=== PATIENT | female | born 1975 | race Two or more races ===

== ENCOUNTER 2017-10-04 05:59 | Day surgery (SDC) | payer BC ==
--- NOTE | 2017-10-03 17:44 | Pre-Procedure Note/Attestation ---
Pre-Procedure Note/Attestation Complete Prior to Procedure Planned Procedure: bilateral Procedure Narrative: 1. Open Reduction Internal FixationNasal Fracture 2. Septoplasty 3. Submucous Resection right inferior turbinate 4. Submucouse resection left inferior turbinate Indications for Procedure Pre-Operative Diagnosis: 1. Nasal fracture 2. Nasal septal deviation 3. Hypertrophied right inferior turbinate 4. Hypertrophied left inferior turbinate Attestation I attest that I discussed the nature of the procedure; its benefits; risks and complications; and alternatives (and the risks and benefits of such alternatives ), prior to the procedure, with the patient (or the patient's legal sales development representative). I attest that, if there was a reasonable possibility of needing a blood transfusion, the patient (or the patient's legal sales development representative) was given the [place] Department [employer] standardized written summary, pursuant to the Venkata Jannet Blood Safety Act ([place] Health and Safety Code # 1645, as amended). I attest that I re-evaluated the patient just prior to the surgery and that there has been no change in the patient's H&P, LEROY COTTRELL Oct 03, 2017 17:44
--- NOTE | 2017-10-03 18:45 | Pre-op HX & Phy Repo 2 SIG ---
DATE OF ADMISSION: 10/04/2017 DATE OF SURGERY: 10/04/2017. INDICATION FOR SURGERY: The patient is a 42-year-old female, who broke her nose who is now coming to have it fixed. She has a bump on her anterior nose as well as fracture of her nasal septum and hypertrophied right and left inferior turbinates on exams in my office. ALLERGIES: She is allergic to sulfa drug. SOCIAL HISTORY: Never a smoker. Single. No children. No issues with alcohol or drugs. 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 FAMILY AND MEDICAL HISTORY: Significant for cancer of the brain and prostate, and diabetes in the family members. She does exercise. Takes supplements and vitamins on a regular basis. She eats a regular diet. SURGICAL HISTORY: No surgical history. PHYSICAL EXAMINATION: GENERAL: She is 62 inches, 114 pounds, and BMI 20.85. Blood pressure 120/80, temperature 98.6, pulse 72, respiratory rate 14, as the last time I saw her on 09/26/2017. HEENT: Nose, septal deviation. Bump on her nose consistent with injury, hypertrophied right and left inferior turbinates. Mouth, normal. Ears, positive light reflex. Normal canal. NECK: Normal. ABDOMEN: Soft and nontender. Normoactive bowel sounds. CHEST: Clear to auscultation and percussion. EXTREMITIES: Grossly normal. 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 It is not indicated for this type surgery. 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 It is not indicated for this type surgery. ASSESSMENT: She is a candidate for open reduction internal fixation of nasal fracture, septoplasty, submucous resection of right and left inferior turbinates. She does not need laboratories. She is otherwise stable and healthy under 46 years old. Stuart Merino M.D. DR: MEETA JOB#: [id number] CC:
[~2017-10-04] VITALS: Ht 154.9 cm; Wt 50.8 kg
[2017-10-04] VITALS (11 sets, daily range): BP systolic 98–125; BP diastolic 67–77
[2017-10-04] MEDS ORDERED: ZYRTEC10 MG ORAL (06:55)
[2017-10-04] MEDS ORDERED: Bupivacaine 0.5% Inj 30 ml vial INJ ONE (07:01)
[2017-10-04] MEDS ORDERED: Cocaine HCl 4% 4ml vial TOPIC ONE (07:01)
[2017-10-04] MEDS ORDERED: Bacitracin Oint 15gm Tube TOPIC ONE (07:01)
[2017-10-04] MEDS ORDERED: Lidocaine 1% 10mg/ml/EPI 0.01mg/ml 50ml INJ ONE (07:02)
[2017-10-04] MEDS ORDERED: LR 1000ml 1,000 ML IVLG SCH (07:08)
--- NOTE | 2017-10-04 07:08 | Anethesia Preoperative Eval ---
Anesthesia Pre-op PMH/ROS General Date of Evaluation: Oct 04, 2017 Anesthesiologist: Wiliam ASA Score: ASA 2 Mallampati Score Class I : Soft palate, uvula, fauces, pillars visible Class II: Soft palate, uvula, fauces visible Class III: Soft palate, base of uvula visible Class IV: Only hard plate visible Mallampati Classification: Class II Surgeon: Wilber Diagnosis: Nasal fracture Surgical Procedure: Septoplasty, SMR/TURBS Anesthesia History: none Family History: no anesthesia problems Allergies: Coded Allergies: SULFA (SULFONAMIDE ANTIBIOTICS) (Verified Allergy, Unknown, hives, 10/03/17 ) childhood Medications: see eMAR Past Medical History Cardiovascular: Reports: other - HLD, Denies: HTN, CAD, [place], valve dz, arrhythmia Pulmonary: Denies: asthma, COPD, SAMMY, other Gastrointestinal/Genitourinary: Denies: GERD, CRI, ESRD, other Neurologic/Psychiatric: Denies: dementia, CVA, depression/anxiety, TIA, other Endocrine: Denies: DM, hypothyroidism, steroids, other HEENT: Denies: cataract (L), cataract (R), glaucoma, CHILKAT (L), CHILKAT (R), other Hematology/Immune: Reports: other - as per patient, history of internal angioedema, resolves with zyrtec, unknown etiology, Denies: anemia, DVT, bleeding disorder Musculoskeletal/Integumentary: Denies: OA, RA, DJD, DDD, edema, other PSxH Narrative: Denies Anesthesia Pre-op Phys. Exam Physician Exam see chart Constitutional: NAD Cardiovascular: RRR Respiratory: CTA Airway Exam Mallampati Score: Class II MO: full ROM: full Teeth: intact Anesthesia Pre-op A/P Labs see chart Urine Test Test 10/04/17 06:28 Urine HCG, Qualitative Negative Studies Pre-op Studies: EKG - sr Risk Assessment & Plan Assessment: ASA II Plan: GA Status Change Before Surgery: No Pre-Antibiotics Drug: Ancef 1g Given Within 1 Hr of Incision: BART León M.D. Oct 04, 2017 07:08
[2017-10-04] MEDS ORDERED: ceFAZolin sod 1 GM in D5W 55 ML IV ONE (07:15)
[2017-10-04] MEDS ORDERED: fentaNYL 100 mcg/2 mL IV PRN (07:15)
[2017-10-04] MEDS ORDERED: LORazepam Inj 2mg/ml 1ml IV PRN (07:15)
[2017-10-04] MEDS ORDERED: Hydromorphone 0.5mg/0.5ml inj IVP PRN (07:15)
[2017-10-04] MEDS ORDERED: DiphenhydrAMINE 50mg/ml Inj IVP PRN (07:15)
[2017-10-04] MEDS ORDERED: Midazolam 2mg/2ml Inj IVP PRN (07:15)
[2017-10-04] MEDS ORDERED: Dexamethasone 4mg/ml vial IVP ONE (07:30)
[2017-10-04] MEDS ORDERED: Sterile Water Irrig 1000ml IRRIG ONE (07:45)
[2017-10-04] MEDS ORDERED: NS Irrig 1000ml ONE (07:45)
[2017-10-04] MEDS ORDERED: Dexamethasone 4mg/ml vial ONE (07:45)
[2017-10-04] MEDS ORDERED: fentaNYL 100 mcg/2 mL IV ONE (07:45)
[2017-10-04] MEDS ORDERED: Midazolam 2mg/2ml Inj ONE (07:45)
[2017-10-04] MEDS ORDERED: Propofol 1,000mg/ 100ml btl IV ONE (07:45)
[2017-10-04] MEDS ORDERED: LR 1000ml ONE (07:45)
[2017-10-04] MEDS ORDERED: Metoclopramide 10mg/2ml Inj ONE (07:45)
[2017-10-04] MEDS ORDERED: Lidocaine 1% MPF 10mg/ml 5ml ONE (07:45)
--- NOTE | 2017-10-04 08:17 | Immediate Post-Op Evaluation ---
Immediate Post-Op Evalulation Immediate Post-Op Evalulation Procedure: Septoplasty SMR/TURBS Date of Evaluation: Oct 04, 2017 Time of Evaluation: 08:54 IV Fluids: 800 Blood Products: 0 Estimated Blood Loss: 50 Urinary Output: 0 Blood Pressure Systolic: 122 Blood Pressure Diastolic: 73 Pulse Rate: 93 Respiratory Rate: 18 O2 Sat by Pulse Oximetry: 100 Temperature (Fahrenheit): 97.6 Pain Score (1-10): 0 Nausea: No Vomiting: No Complications 0 Patient Status: awake, reacts, patent, none Hydration Status: adequate Drug: Ancef 1g Given Within 1 Hr of Incision: Yes Time Given: 08:00 BART WARD M.D. Oct 04, 2017 08:17
--- NOTE | 2017-10-04 08:18 | 48 Hour Post Anesthesia Eval ---
Post Anesthesia Evaluation Procedure: Septoplasty SMR/TURBS Date of Evaluation: Oct 04, 2017 Time of Evaluation: 09:50 Blood Pressure Systolic: 118 0: 77 Pulse Rate: 88 Respiratory Rate: 19 Temperature (Fahrenheit): 97.4 O2 Sat by Pulse Oximetry: 98 Airway: patent Nausea: No Vomiting: No Pain Intensity: 0 Hydration Status: adequate Cardiopulmonary Status: at baseline Mental Status/LOC: patient returned to baseline Post-Anesthesia Complications: 0 Follow-up care needed: ready to discharge BART WARD M.D. Oct 04, 2017 08:18
--- NOTE | 2017-10-04 09:15 | Brief Operative Note ---
Immediate Post Operative Note Operative Note Pre-op Diagnosis: 1. Nasal fracture 2. Nasal septal deviation 3. Hypertrophied right inferior turbinate 4. Hypertrophied left inferior turbinate Procedure: ORIF nasal fracture Septoplasty SMR bilateral inferior turbinates Post-op Diagnosis: same as pre-op Surgeon: Leroy Cottrell Assistant Football Coach: none Additional Surgeons: none Anesthesiologist: Dr. Swain Anesthesia: general Specimen: none Complications: none Condition: stable Fluids: 500 [id number] Estimated Blood Loss: volume - 50 cc Drains: none Packing: Stamberger nasal gel-1 syringe Implant(s) used?: No LEROY COTTRELL Oct 04, 2017 09:15
--- NOTE | 2017-10-04 09:18 | Discharge Instructions ---
Discharge Instructions Discharge Instructions Follow up with: next week-pt has appt already Diet: regular Resume Normal Activity?: No Activity: light activity Pneumonia Vaccine: pt refused vaccine Influenza Vaccine (Jun to Nov): pt refused vaccine Follow Up Orders pt has printed instructions, along with post op prescriptions given to her at her pre op appt last week Return to Work/School on: Oct 18, 2017 Special Instructions pt has printed instructions, along with post op prescriptions given to her at her pre op appt last week For Congestive Heart Failure Reminder Report to your physician any weight gain of 5 pounds or more in one week. LEROY COTTRELL Oct 04, 2017 09:18
[2017-10-04] MEDS ORDERED: Norco 5mg/325mg tab ORAL PRN (15:01)
[2017-10-04] MEDS ORDERED: HYDROmorphone 1mg/ml Carpuject SUBQ PRN (15:01)
--- NOTE | 2017-10-04 15:30 | Operative Note - Dictated ---
DATE OF OPERATION: 10/04/2017 SURGEON: Stuart Merino M.D. INDICATION FOR SURGERY: The patient has had fractures to her nose with a bump on either side and a flattening of the mid nose and nasal bone. She also has hypertrophied inferior turbinates bilaterally and a nasal septal deviation. PREOPERATIVE DIAGNOSIS: The patient has had fractures to her nose with a bump on either side and a flattening of the mid nose and nasal bone. She also has hypertrophied inferior turbinates bilaterally and a nasal septal deviation. POSTOPERATIVE DIAGNOSIS: The patient has had fractures to her nose with a bump on either side and a flattening of the mid nose and nasal bone. She also has hypertrophied inferior turbinates bilaterally and a nasal septal deviation. FINDINGS: The patient has had fractures to her nose with a bump on either side and a flattening of the mid nose and nasal bone. She also has hypertrophied inferior turbinates bilaterally and a nasal septal deviation. PROCEDURE: 1. Open reduction and internal fixation, nasal fracture. 2. Septoplasty. 3. Submucous resection, right inferior turbinate. 4. Submucous resection, left inferior turbinate. TECHNIQUE: The patient was prepped and draped in the usual manner via LMA general anesthesia. Additional 17 mL of 50:50 mixture 1% lidocaine with 1:100,000 epinephrine and Sensorcaine 0.5% with 1:200,000 epinephrine were placed in the nasal mucosa the injection with a 27 needle. Additionally, 4 mL of 4% cocaine were placed on four nasal pledgets two in either nostril. All accounted for at the end of the case. A time-out was performed before we proceeded with the case. Initially, a Saran incision was made on the left side of the septum with a #15 blade. With a dental elevator, I elevated the perichondrium and periosteum on the septum. I then removed the lower 2 mm and the vomer, which was loosened with a small osteotome on the left hand side. The flap was intact and then sewn back together with a 4-0 plain suture. I made an incision in the anterior inferior aspects of the left inferior turbinate with #15 blade. Placed a radiofrequency wand with saline gel setting a 6 x 10 seconds 2 times in the left inferior turbinate. It was then outfractured with a Boies elevator. I now addressed the right inferior turbinate in the same way as the left. A small incision made anterior and inferior aspect. Radiofrequency wand covered with saline gel setting of 6, 10 seconds x2 sticks. Outfractured with a Boies elevator. I then made between the cartilage incisions with a 15 blade and elevated anteriorly with a curved scissors over the nose. I then used a to elevate the periosteum and perichondrium over the nasal bone. I then proceeded to use a gouge osteotome to remove the nasal fracture on top of the nose. I then used partial osteotomies with this straight guarded osteotome and then low lateral full osteotomy to complete and make sure there was no greenstick fracture. Nose moved freely, was placed back in position. A rasp was used to smooth off the edges. I then proceeded to place tape and the stent on the nose. Mustache dressing was placed. Sponge and needle count was correct. ESTIMATED BLOOD LOSS: Zero. COUNTS: None. DRAINS: None. No specimen. The patient awake, alert, and stable in the operating room prior extubation and in the recovery room 20 minutes later and then was later transferred to the downgraded recovery room where she will be leaving shortly. I have spoken with her boyfriend. Stuart Merino M.D. DR: TAHIRA JOB#: [id number] CC:
== END 2017-10-04 11:10 | disposition home or self-care (01) ==
LOC: SUR 05:59
DX: S02.2XXA Fracture of nasal bones, initial encounter for closed fracture (principal); J34.3 Hypertrophy of nasal turbinates; J34.2 Deviated nasal septum; Z88.2 Allergy status to sulfonamides; Z80.42 Family history of malignant neoplasm of prostate; Z80.8 Family history of malignant neoplasm of other organs or systems; Z83.3 Family history of diabetes mellitus; E78.5 Hyperlipidemia, unspecified; X58.XXXA Exposure to other specified factors, initial encounter; Y93.9 Activity, unspecified; Y92.9 Unspecified place or not applicable
CPT/HCPCS: 21330; 30140; 30520; 81025; J0690; J1100; J2250; J2405; J2704; J2765; J3010; J3490; J7120; 94003; 94150